=== PATIENT | male | born 1950 | race Caucasian/White ===

== ENCOUNTER 2017-03-19 01:53 | Day surgery (SDC) | payer MEDICARE, OTHER ==
[2017-03-19] VITALS (20 sets, daily range): BP systolic 91–171; BP diastolic 68–98; PULSE 62–75; RESP 10–20; O2SAT 96–100
[~2017-03-19] VITALS: Ht 181.6 cm; Wt 95.7 kg
[~2017-03-19 01:53] MED LIST: APIX5TAB PO; ASCO500C6 PO; ATOR20TA PO; DILT120C83 PO; MULT1CAP33 PO; TOP100 PO; TRIA0.1220 PO
[2017-03-19] MEDS ORDERED: Phenylephrine/NS 100 mCg/mL 10 mL Syringe IVPUSH ONE (01:54)
[2017-03-19] MEDS ORDERED: Protamine Sulfate 10 mg/mL 5 mL Inj ONE ×2 (01:54→14:46)
[2017-03-19] MEDS ORDERED: Dexamethasone 4 mg/mL Inj ONE (01:54)
[2017-03-19] MEDS ORDERED: Ketamine 10 mg/mL 20 mL Inj ONE (01:54)
[2017-03-19] MEDS ORDERED: MetoCLOpramide 5 mg/mL 2 mL Inj ONE (01:54)
[2017-03-19] MEDS ORDERED: Propofol 10,000 mCg/mL 20 mL Inj ONE (01:54)
[2017-03-19] MEDS ORDERED: Rocuronium 10 mg/mL 5 mL Inj ONE (01:54)
[2017-03-19] MEDS ORDERED: Ondansetron 2 mg/mL 2 mL Inj ONE (01:54)
[2017-03-19] MEDS ORDERED: Lactated Ringer's 1,000 ML IV SCH ×2 (05:00→12:11)
[2017-03-19] MEDS ORDERED: Heparin 1,000 Units/500 mL NS Premix IV ONE (09:39)
[2017-03-19] MEDS ORDERED: Heparin 5,000 Units/500 mL NS Premix IV ONE (09:40)
[2017-03-19] MEDS ORDERED: Heparin 1,000 Unit/mL 10 mL Inj ONE (09:40)
[2017-03-19] MEDS ORDERED: Heparin 25,000 Unit/500 mL 0.45% NS Premix IV ONE (09:40)
[2017-03-19] MEDS ORDERED: Benzoc-Butamben-Tetraca Spray 20 Gm Spray TOPICAL PRN (10:20)
[2017-03-19 10:27] LABS: BASOPHILS % (AUTO) 0.6 % (0-3); EOSINOPHILS % (AUTO) 1.3 % (0-5); MONOCYTES % (AUTO) 11.6 % (4-12); Mean Corpuscular Hemoglobin 32.4 pg (27.0-35.0); Mean Corpuscular Volume 94.1 fL (81-100); Platelet Count 163 bil/L (150-400)
[2017-03-19 10:44] LABS: INR 1.05 ratio
--- NOTE | 2017-03-19 11:15 | NUR ---
[facility] Patient admitted to [facility] bed 7 at 1030. at bedside. Patient denies pain. HL X 2 placed and labs obtained. ECG complete. Consent in chart, initialed and dated by patient. History and medications reviewed. pre-procedure teaching done and questions answered.
--- NOTE | 2017-03-19 11:21 | PCM.HPANE ---
Patient Data Surgeon Admitting Provider: Attending Provider:Bigg Jacques MD Primary Care Physician:Fab Vasquez MD Other Provider:Fatemeh Goodeingham Anesthesia Reason for Visit Persistent Atrial Fibrillation Ht/WT & BMI Height (Feet): 5 Height (Inches): 11.50 Weight (Kilograms): 92.700 Body Mass Index 27.99 Allergies Coded Allergies: chlorpromazine (Verified Allergy, Unknown, 03/18/17) Past Anesthesia History Anesthesia History: Denies:: Anesthesia Reactions Diabetes History Hx Diabetes?: No MRSA MRSA: No Medications Hypertension Medication: Yes Home Meds Incl Beta Levi: No Reported Medications Ascorbic Acid (Vitamin C)500 Mg Capsule.er500 Mg PO 03/18/17 Triazolam 0.125 Mg Tablet0.125 Mg PO HS PRN For Sleep 03/18/17 Metoprolol Succinate ER (Toprol XL)100 Mg Abdsow911 Mg PO QPM 03/18/17 Metoprolol Succinate ER (Toprol XL)100 Mg Sbyvnq438 Mg PO QAM 03/18/17 Multivitamin (Multivitamins)1 Each Capsule1 Each PO 03/18/17 Apixaban (Eliquis)5 Mg Tablet5 Mg PO BID 03/18/17 Diltiazem ER (Cardizem CD)120 Mg Cap.er.10h407 Mg PO DAILY 03/18/17 Atorvastatin (Lipitor)20 Mg Dsvofn64 Mg PO DAILY 03/18/17 History History of ENT Problems?: No HEENT History: Denies:: Cataracts Dysphagia Glaucoma Sinus Problem Denture Type: None Teeth Condition: Within Normal Limits Hx of Heart Problems?: Yes Cardiovascular History: Positive for:: Hypertension Irregular Heartbeat (Atrial Fibrillation) Denies:: Cardiac Surgery Chest Pain Congestive Heart Failure Edema Heart Murmur Hx of Respiratory Problem?: Yes Respiratory History: Positive for:: Dyspnea (Afib) Pneumonia Denies:: Asthma Chest Surgery Tuberculosis Hx Neurologic Problems?: No Hx of GI Problems?: No Hx of Problems?: No HX of Peritoneal Dialysis: No Other Skin Pertinent History: MOHS/skin cancer Hx Musculoskeletal Problems?: No Musculoskeletal History: Denies:: Back Injury Joint Replacement Hx of Psycho/Social Problems?: Yes Psycho Social History: Positive for:: Hx Depression (hx zoloft) Denies:: Anxiety Hx Surgeries?: Yes (ACL) Other History: Positive for:: Cancer (skin) Hospitalization Denies:: Thyroid Disease History Blood Transfusions: Positive for:: Accept Blood Products? Denies:: Blood Transfusions Hx Diabetes: No Hx Alcohol Use: YesAlcoholic Drinks Per Day: 2 beers/1 ounceHx Substance Use: Yes (occasional marijuana 1-2 times weekly)Have You Smoked inLast 12 mo: No Stop/Bang Treated for Sleep Apnea?: No Do You Have a CPAP Machine?: No B- Body Mass Index > 35 kg/m2: No A- Age over 50: Yes N- Neck Large Circumference: No G- Gender Male: Yes CALVIN Risk Assessment: Low Risk, <3 Yes Risk Assessment Category Category 1A: Patient has history of documented sleep apnea, and HAS NOT received any narcotic, sedative or anesthesia administration during this stay. Category 1B: Patient has history of documented sleep apnea, and HAS received any narcotic , sedative or anesthesia administration during this stay Category 2: Patient has SUSPECTED Obstructive Sleep Apnea, and HAS received any narcotic , sedative or anesthesia administration during this stay. Category 3: Patient has SUSPECTED Obstructive Sleep Apnea and HAS NOT received narcotic, sedative or anesthesia administration during this stay. Category 4: Outpatient in Procedural Areas with known sleep apnea or who screen positive for High Risk via the STOP/BANG questionnaire. Exam Exam Vital Signs Vital Signs Date Time Temp Pulse Resp B/P Pulse Ox O2 Delivery O2 Flow Rate FiO2 03/19/17 11:09 74 14 148/94 03/19/17 10:24 36.9 74 14 148/94 96 Room Air General Appearance: Oriented X3 HEENT/AIRWAY: MP 2 Lungs: Normal Air Movement Heart: Other Meds/Labs/Diagnostics Labs Test 03/19/17 10:24 White Blood Count 5.3th/mm3 (3.8-10.1) Red Blood Count 5.43mil/mm3 (4.40-5.80) Hemoglobin 17.6g/dL (13.8-17.2) Hematocrit 51.1% (41.0-50.0) Mean Corpuscular Volume 94.1fL (81-100) Mean Corpuscular Hemoglobin 32.4pg (27.0-35.0) Mean Corpuscular Hemoglobin Concent 34.4% (32.0-37.0) Red Cell Distribution Width 13.3% (12.3-15.4) Platelet Count 163bil/L (150-400) Neutrophils (%) (Auto) 53.0% (40-74) Lymphocytes (%) (Auto) 33.5% (14-46) Monocytes (%) (Auto) 11.6% (4-12) Eosinophils (%) (Auto) 1.3% (0-5) Basophils (%) (Auto) 0.6% (0-3) Prothrombin Time 11.3sec (8.1-12.5) Prothromb Time International Ratio 1.05ratio Sodium Level 137mEq/L (134-144) Potassium Level 4.6mEq/L (3.5-5.2) Chloride Level 101mEq/L (97-108) Carbon Dioxide Level 23mmol/L (18-29) Blood Urea Nitrogen 11mg/dL (8-27) Creatinine 1.06mg/dL (0.76-1.27) Estimat Glomerular Filtration Rate 75mL/min (>59) Glucose Level 101mg/dL (60-99) Calcium Level 9.1mg/dL (8.5-10.1) Plan Impression Patient chart reviewed, patient interviewed and anesthestic plan with risks, benefits, and alternatives discussed, and informed consent obtained. ASA Physical Status: ASA3 Severe Disease Anesthetic Support Modalities: Arterial Line Anesthetic Plan: GA Bene/Risks/Altern/Consents: Yes HP Complete Prior to Induction: Yes Robin Bernardo MD Mar 19, 2017 11:21
[2017-03-19] MEDS ORDERED: Lactated Ringer's 500 ML IV PRN (12:11)
[2017-03-19] MEDS ORDERED: EPHEDrine Sulfate 50 mg/mL Inj IVPUSH PRN (12:15)
[2017-03-19] MEDS ORDERED: Phenylephrine 10,000 mCg/mL Inj IVPUSH PRN (12:15)
[2017-03-19] MEDS ORDERED: HYDROmorphone 1 mg/mL Inj IVPUSH PRN (12:15)
[2017-03-19] MEDS ORDERED: Ondansetron 2 mg/mL 2 mL Inj IVPUSH PRN (12:15)
[2017-03-19] MEDS ORDERED: Dexamethasone 4 mg/mL Inj IVPUSH PRN (12:15)
[2017-03-19] MEDS ORDERED: MetoCLOpramide 5 mg/mL 2 mL Inj IVPUSH PRN (12:15)
[2017-03-19] MEDS ORDERED: fentaNYL-PF 50 mCg/mL 2 mL Inj IVPUSH PRN (12:15)
[2017-03-19] MEDS ORDERED: Amiodarone 150 mg/100 mL D5W Premix IV ONE (14:01)
--- NOTE | 2017-03-19 15:21 | DRSVH ---
[facility] [address] [place] [address] Echocardiogram Report Name: SERENITY MOORE MStudy Date: 03/19/2017 Height: 71 in Hospital Exam Location: [facility] Weight: 215 lb Gender: Male BSA: 2.2 m2 : 1950 Age: 66 yrs Reason For Study: Atrial fibrillation Ordering Physician: Bigg Jacques Performed By: Higinio Randhawa Referring Physician: Bigg Jacques Interpretation Summary Spontaneous contrast in LA. Spontaneous contrast in left atrial appendage. No thrombus is detected in the left atrial appendage. There is mild to moderate mitral regurgitation. The aortic valve is trileaflet. There is mild tricuspid regurgitation. Procedure: Informed consent for Transesophageal Echocardiogram, and use of a contrast agent as needed, was obtained prior to the procedure. The patient was brought to the cardiac catheterization lab in a fasting state. Sedation was managed by anesthesiologist; see anesthesiology notes for details. A 2D transesophageal echocardiogram with spectral and color flow Doppler was performed. The patient was in atrial fibrillation with heart rates between 78 -111 bpm during the exam. There were no complications. Left Ventricle: Left ventricular systolic function is mildly reduced. Atria: Spontaneous contrast in LA. Spontaneous contrast in left atrial appendage. No thrombus is detected in the left atrial appendage. The interatrial septum is intact with no evidence for an atrial septal defect. Mitral Valve: There is mild to moderate mitral regurgitation. Aortic Valve: The aortic valve is trileaflet. Tricuspid Valve: The tricuspid valve is normal. There is mild tricuspid regurgitation. Electronically signed by: Jamarcus Bishop on Reading Physician:03/19/2017 01:53 PM
--- NOTE | 2017-03-19 16:23 | PROCED ---
[address] [address] PROCEDURE NOTE PATIENT: SERENITY MOORE : 1950 MR#: [id number] ADMIT: 03/19/2017 JOB ID: [id number] DATE OF SERVICE: 03/19/2017 PREOPERATIVE DIAGNOSIS(ES): Symptomatic drug refractory persistent atrial fibrillation. POSTOPERATIVE DIAGNOSIS(ES): Symptomatic drug refractory persistent atrial fibrillation. PROCEDURES PERFORMED: 1. Comprehensive electrophysiology study. 2. Three-dimensional electroanatomic mapping using the CARTO 3 system. 3. Intracardiac echocardiography. 4. Transseptal puncture x2. 5. Atrial fibrillation ablation with pulmonary vein isolation. 6. Barium esophagram. 7. Direct current cardioversion. 8. Fluoroscopy. SURGEON: Bigg Jacques M.D., electrophysiology attending. WIRE SPIRAL BINDER: Demetrius Martins/Gary Smallwood PA-C. ANESTHESIA: General endotracheal anesthesia was undertaken for this case. INDICATION: The patient is a pleasant 66-year-old man with persistent symptomatic drug refractory atrial fibrillation. After discussion of the risks and benefits of catheter based mapping and ablation, he opted to proceed. PROCEDURAL DESCRIPTION: Following informed consent, the patient was taken to the EP laboratory in a fasting nonsedated state, where he was prepped in the usual sterile fashion. He underwent a preprocedural transesophageal echocardiogram by Dr. Bishop confirming lack of intracardiac thrombus. Please see separate dictated report for the details of that procedure. The bilateral groins were then infiltrated with 1% lidocaine. Then, using modified Seldinger technique, one 10.5 and one 7-Spanish sheaths were inserted into the left femoral vein. Two 8-Spanish sheaths were inserted into the right femoral vein. Under fluoroscopic guidance, a deflectable decapolar catheter was advanced to the coronary sinus with the most proximal bipoles at the os of the sinus. An intracardiac echo probe was advanced to the RV outflow tract and used to visualize the pericardial space. No effusion was noted. The ICE probe was pulled back into the right atrium and used to visualize the interatrial septum and assist in transseptal puncture. Two transseptal punctures were performed in an identical fashion. Each of the short 8-Spanish sheaths were exchanged over a long wire for a Melon sheath dilator and Marianne/Brockenbrough needle. The entire system was used to engage the interatrial septum. Then, under fluoroscopic ICE and pressure guidance, the septum was traversed twice to deploy the two Serrano sheaths into the left atrium. The patient was heparinized for a goal ACT of 350-400 seconds throughout the entire time in the left atrium following the first and preceding the second transseptal puncture. A resurvey of the pericardial space showed no evidence of effusion. Through the two Serrano sheaths, an F curve Smart Touch irrigated ablation catheter was passed as was a 20 pole Pentray catheter. A three-dimensional electroanatomic map of the left atrium and four pulmonary veins was created using [employer] 3 system. The four pulmonary veins were then isolated for entrance and exit block starting with the left upper, left lower, right upper and right lower pulmonary veins. Following entrance block in the left upper pulmonary vein, the patient was cardioverted with a 200 joule biphasic synchronized shock. Exit block was confirmed in that vein and then the same for the remaining three pulmonary veins. Once the exit block was confirmed in all four pulmonary veins, we disengaged from the left atrium. We reversed the patient's heparin with protamine, and turned off the heparin drip. A re-survey of the pericardial space showed no evidence of effusion. During the course of this study, we did complete a comprehensive electrophysiology study with right atrial pacing and recording, right ventricular pacing and recording, His bundle recording, and left atrial pacing and recording. All catheters and sheaths were removed. Manual pressure was held for hemostasis. The patient was transferred to the [facility] for monitoring and bedrest. COMPLICATIONS: None. ESTIMATED BLOOD LOSS: 30 cc. FINDINGS: 1. Baseline rhythm is atrial fibrillation. Post ablation and cardioversion he is in sinus rhythm with an RR interval of 721 msec, IA 208 msec, QRS 94 msec, QT 409 msec. 2. Intracardiac intervals: AH interval 115 msec, HV 47 msec. 3. Retrograde conduction: No VA conduction was seen. 4. Pulmonary vein isolation as described above for symptomatic refractory atrial fibrillation with entrance and exit block in all four pulmonary veins. Of note, a barium esophagram was performed prior to the ablation and delineated the course of the esophagus closest to the posterior aspects of the right lower and left lower pulmonary veins. Low wattage pepper at 25 cooney were placed for shorter durations along this posterior aspect. IMPRESSION: Successful pulmonary vein isolation procedure for symptomatic persistent atrial fibrillation. PLAN: 1. Bedrest x4 hours. 2. Resume anticoagulation immediately. 3. Amiodarone for the next three months starting with 400 mg p.o. b.i.d. x1 week followed by 400 mg daily for one week followed by 200 mg daily thereafter. 4. Protonix 40 mg p.o. daily for one month. 5. Monitoring overnight. 6. Followup with Gary Smallwood in four weeks and with me in three months. ATTENDING STATEMENT: Bigg Jacques M.D., electrophysiology attending, was present for and supervised/performed all aspects of this procedure.
--- NOTE | 2017-03-19 18:39 | NUR ---
[facility] Patient return to [facility] bed 7 from cathead operator ablation with anesthesia at 1545. and daughter at bedside. Patient denies pain, sleeping but wakes easily to voice. Bilateral venous groin punctures without bleeding or hematoma. Pedal pulses present. Stephens catheter in place and draining serina urine. Taking PO. Transferred by bed to room 2030 at 1815. Report to receiving RN.
--- NOTE | 2017-03-19 19:02 | NUR ---
Admit to [facility] Pt arrived around 1814 from [facility]. Bilateral groin sites observed by both giving and receiving RN. Soft, non-tender. Scant serosanguinous drainage. Pt remains on bedrest. Stephens catheter patent, draining yellow urine. Pt A&O X3. Answers questions appropriately. Telemetry leads placed. Family at the bedside.
[2017-03-19] MEDS ORDERED: MeTOProlol XL 50 mg ER24 Tablet PO SCH (20:30)
--- NOTE | 2017-03-19 21:56 | NUR ---
GROIN SITES Pt's groin sites non-tender, no signs of hematoma bilaterally. Pt off bed rest @ 1999, denson cath removed with 800cc in bag. Pt denies any pain, vital signs stable, no other issues noted @ this time.
[2017-03-20 02:21] VITALS: BP 175/127; PULSE 74; RESP 16; O2SAT 97
[2017-03-20] MEDS ORDERED: Pantoprazole 40 mg ER24 Tablet PO SCH (06:30)
[2017-03-20 08:00] VITALS: PULSE 78
--- NOTE | 2017-03-20 08:03 | PCM.ANEP1 ---
Post Anesthesia Phase 1 PACU Phase 1 Assessment Vital Signs Vital Signs Date Time Temp Pulse Resp B/P Pulse Ox O2 Delivery O2 Flow Rate FiO2 03/20/17 02:21 39.5 74 16 175/127 97 Room Air Anesthetic Administered: GA Level of Alertness: Awake, talking Pain: No Nausea or Vomiting: No Cardiovascular Function and Hy: No Oxygen Delivery: Room Air Lungs: Normal Air Movement Robin Bernardo MD Mar 20, 2017 08:03
[2017-03-20] MEDS ORDERED: Ascorbic Acid 500 mg Tablet PO SCH (08:30)
[2017-03-20] MEDS ORDERED: MeTOProlol XL 50 mg ER24 Tablet PO SCH (08:30)
[2017-03-20 08:56] VITALS: BP 165/92; PULSE 74; RESP 16; O2SAT 99
--- NOTE | 2017-03-20 09:05 | PCM.DIMED ---
Discharge Instructions Date of Service Mar 20, 2017 Dates of Hospitalization Discharge Diagnosis Discharge Diagnosis Persistent Atrial Fibrillation Hypertension Diet Heart Healthy Activity Other (To prevent infection, do not sit in a bath tub, hot tub or pool for 1 week. To prevent bleeding, do not lift or push more than 10 lbs for one week.) Call your provider Fever or Chills, Bleeding, Excessive diarrhea, Weakness (unilateral) Patient Instructions Mid-level Provider (F9): Gary Smallwood PA-C Follow-up with Mid-level in: 4 weeks Gary Smallwood PA-C Mar 20, 2017 09:04
[2017-03-20] MEDS ORDERED: PANT40TA3 PO (09:21)
[2017-03-20] MEDS ORDERED: AMIO200T PO (09:21)
--- NOTE | 2017-03-20 10:20 | DIS ---
[address] [address] DISCHARGE SUMMARY PATIENT: SERENITY MOORE : 1950 MR#: [id number] ADMIT: 03/19/2017 JOB ID: [id number] DIS: REASON FOR ADMISSION: Ablation procedure for atrial fibrillation. CHIEF COMPLAINT: Fatigue and dyspnea with mild exertion. BRIEF HISTORY: The patient is a pleasant 66-year-old man with previously paroxysmal atrial fibrillation, which has now become persistent. This has been difficult to control the rate and rhythm. His echocardiogram shows reduced LV function with ejection fraction of 40-45%, and he has moderate left atrial enlargement. He also has hypertension. The patient and Dr. Jacques talked about treatment options for atrial fibrillation and decided to proceed with atrial fibrillation. COURSE IN THE HOSPITAL: The patient was admitted through the [facility] and taken to the clinical laboratory technician, where he was placed under general anesthesia by the anesthesiologist. He then had a PATSY, which showed no evidence of left atrial thrombus. The atrial fibrillation ablation procedure was then undertaken and completed without incident. The femoral sheaths were removed and hemostasis was obtained. He was awakened from anesthesia and taken back to the [facility] for further recovery. Afterward he was taken to the [facility] for overnight observation and telemetry monitoring. He remained in sinus rhythm overnight and in the morning felt well. He had no complaints of dyspnea, chest pain, or lightheadedness. The ECG showed sinus rhythm at 76 BPM. He had no bleeding from the left or right femoral access sites. The Stephens catheter had been removed, and he was able to urinate, but with discomfort. DISPOSITION: The patient was discharged home in good condition with a followup appointment at the [facility] Cardiology office in 1 month. He was asked not to lift or push more than 10 pounds for 1 week to prevent bleeding and to not sit in a hot tub, bathtub, or pool for 1 week to prevent infection. He will take medications as prescribed with the addition of amiodarone and Protonix for a short period. DISCHARGE MEDICATIONS: 1. Amiodarone 400 mg b.i.d. for 5 days, then 400 mg daily for 2 weeks, then 200 mg daily. 2. Pantoprazole 40 mg daily for 1 month. 3. Apixaban 5 mg b.i.d. 4. Vitamin C 500 mg daily. 5. Atorvastatin 20 mg daily. 6. Metoprolol succinate 150 mg q.a.m. and 100 mg q.p.m. 7. Multivitamin 1 daily. 8. Triazolam 0.125 mg p.r.n. for sleep. FINAL DIAGNOSES: 1. Paroxysmal and now persistent atrial fibrillation status post ablation procedure for atrial fibrillation on March 19, 2017. 2. Hypertension.
--- NOTE | 2017-03-20 11:49 | NUR ---
Discharge Patient left via wheelchair with and unit secretary in a stable condition. Both IV's DC'd intact, tele removed, all personal belongings with . Discussed new medication of Amiodarone taken twice daily with next due dose tonight -- patient verbalized understanding. Discussed new medication of Protonix to be taken once daily with next due dose tomorrow -- patient verbalized understanding. Discussed the discontinuation of PO cardizem -- patient verbalized understanding. All other home medications to be continued. Home medication returned to at time of discharge. Follow up with PCP and cardiology scheduled and discussed, new prescriptions electronically sent to [facility].
== END 2017-03-20 11:50 | disposition home or self-care (01) ==
LOC: SOUO 01:53 → PCC 18:22 → UNDOADMOB 18:22 → SOUO 03-20 11:50
PROVIDERS: ATTEND Internal Medicine Cardiovascular Disease
DX: I48.1 Persistent atrial fibrillation (principal); Z79.01 Long term (current) use of anticoagulants; Z79.82 Long term (current) use of aspirin; I10 Essential (primary) hypertension; I50.30 Unspecified diastolic (congestive) heart failure; I34.0 Nonrheumatic mitral (valve) insufficiency
CPT/HCPCS: 36415; 80048; 85025; 85610; 93005; 93613; 93656; 93662; C1730; C1732; C1759; C1769; C1894; C8925; J0282; J1100; J1644; J2250; J2370; J2405; J2720; J2765